=== PATIENT | male | born 1985 | race Caucasian/White ===

== ENCOUNTER 2020-05-01 11:32 | Outpatient (REF) | payer MEDICAID, SELFPAY | END 2020-05-01 11:33 | disposition home or self-care (01) | LOC: HO.LAB 11:32 | PROVIDERS: Visit Provider Internal Medicine | DX: Z20.822 Contact with and (suspected) exposure to COVID-19 (principal) | CPT/HCPCS: 36415; C9803; U0003 ==

== ENCOUNTER 2020-11-14 23:52 | Emergency (ER) | payer MEDICAID, SELFPAY ==
[2020-11-14 23:55] VITALS: BP 123/79; PULSE 87; RESP 16; TEMP 36.9; O2SAT 97; BMI 50.7
[2020-11-15] MEDS: predniSONE 20 MG TABLET 60 MG PO (00:38)
--- NOTE | 2020-11-15 00:43 | ED.GENADULT ---
HPI - General Adult General Chief complaint: Allergic Reaction Stated complaint: swollen hand Time Seen by Provider: 11/15/20 00:23 Source: patient Mode of arrival: ambulatory Limitations: no limitations History of Present Illness HPI narrative: 35-year-old male who presents emergency department for evaluation of right hand swelling. States this morning he developed swelling of his right hand. He states he has had similar swelling in other parts was body's the past secondary to allergic reactions. The hand was pruritic and he took some Benadryl. States that the swelling got worse this morning therefore came to emergency department for evaluation. Denies any pain or trauma to the hand. He denied fever, chills, chest pain, shortness of breath, dyspnea on exertion. Related Data Previous Rx's Medication Instructions Recorded prednisone 20 mg tablet 60 mg PO DAILY 5 Days #15 tab 11/15/20 Allergies Allergy/AdvReac Type Severity Reaction Status Date / Time No Known Allergies Allergy Unknown Unverified 01/03/20 16:42 Review of Systems Review of Systems: Yes all other systems are reviewed and are negative [facility] Past Medical History [facility] Narrative: Past medical history: Allergic reactions. Social history: The patient is a former smoker and he stopped smoking 2 years prior. He drinks 1 beer per day. He denies drug use. Social History Social History Advance Directives: No Advance Directives Information Provided: No Physical Exam Vital Signs: Vital Signs: Last Vital Signs Temp 98.5 F 11/14/20 23:55 Pulse 87 11/14/20 23:55 Resp 16 11/14/20 23:55 BP 123/79 11/14/20 23:55 Pulse Ox 97 11/14/20 23:55 Body Mass Index 50.7 Const: General: cooperative and healthy appearing Orientation/consciousness: oriented to person and oriented to place Limitations: no limitations HENMT: Head: Yes normal to inspection, Yes normocephalic and Yes atraumatic Ears: external ears normal General nose exam: Normal external nose present Face and sinus: Yes normal facial exam Mouth: Normal oral and palatal mucosa present Throat: Yes posterior oropharynx normal Eyes: Periorbital: periorbital findings normal Eyelids: Yes eyelids normal Conjunctivae: conjunctivae normal Sclerae: sclerae normal Corneas: corneas normal Pupils: Equal, round and reactive pupils present Direct Ophthalmoscopy: normal light reflex Neck: Neck: Yes full ROM, Yes no lymphadenopathy, Yes no meningeal signs, Yes trachea midline and Yes supple Chest: Chest palpation & inspection: normal inspection of the chest and normal palpation of entire chest wall Resp: Effort & Inspection: normal respiratory effort and able to speak in complete sentences Auscultation: clear to auscultation bilaterally Cardio: Rate: regular rate Rhythm: regular rhythm Heart sounds: S1 normal heart sound present, S2 normal heart sound present and no murmurs GI: Inspection: Yes normal to inspection Palpation (GI): Soft to palpation, nontender, no guarding, not rigid and No hepatosplenomegaly present : General: Yes no CVA tenderness Back/Spine/Pelvis: Back: no CVA tenderness Cervical Spine: normal cervical lordosis Thoracic/Lumbar Spine: thoracic and lumbar spine normal to inspection Skin: Lesions: no lesions Rashes: no rashes Wounds: no wounds Neuro: General: oriented to person, oriented to place and no meningeal signs Cranial nerves: Yes Equal, round and reactive pupils present Cognition (Neuro): normal cognition Motor exam (neuro): 5/5 motor strength present throughout Extrem: Other: The patient's right hand is swollen with no erythema or increased warmth, he has no tenderness with palpation over the joints. His full range of motion with no pain or limitations. Psych: Appearance: well kempt Mental Status: mental status grossly normal Speech and movement: Normal speech and movement present Affect: normal affect Attitude: cooperative Thought process: Normal thought process present Thought content: Normal thought content present Course Course Course Narrative: 35-year-old male who presents emergency department for evaluation of pruritus and swelling of his right hand. Patient does have swelling of his right hand with no erythema or increased warmth. At this time I do not think that he has an infectious process or any acute inflammatory arthritis. Patient has had some worse wall is the past secondary to allergic reactions and I believe that this may be allergic reaction at this time. Patient was given prednisone 60 mg orally. He is to take prednisone 60 mg once a day for 5 days. The patient was given verbal and printed instructions prior to discharge. The patient was advised to follow-up with their PCP in 2 days and to return to the emergency department if their symptoms get worse or if they develop any new symptoms that are concerning to them Discharge Plan Discharge Clinical Impression: Allergic reaction Qualifiers: Encounter type: initial encounter Qualified Code(s): T78.40XA - Allergy, unspecified, initial encounter Hand swelling Qualifiers: Laterality: right Qualified Code(s): M79.89 - Other specified soft tissue disorders Patient Disposition: Home, Self-Care Instructions: Allergies (ED) Additional Instructions: Take prednisone 20 mg pills, 3 pills once a day for 5 days. Take Benadryl 25 mg pills, 1 pill 4 times a day as needed for itchiness. Follow-up with your doctor in 2 days. Please return to the emergency department if your symptoms get worse or if you develop any symptoms that are concerning to you. Prescriptions: New prednisone 20 mg tablet 60 mg PO DAILY 5 Days Qty: 15 RF: 0
== END 2020-11-15 01:05 | disposition home or self-care (01) ==
PROVIDERS: Emergency Provider Emergency Medicine Emergency Medical Services
DX: T78.40XA Allergy, unspecified, initial encounter (principal); M79.89 Other specified soft tissue disorders; X58.XXXA Exposure to other specified factors, initial encounter
CPT/HCPCS: 99283

== ENCOUNTER 2020-12-14 01:12 | Emergency (ER) | payer MEDICAID, SELFPAY ==
--- NOTE | ~2020-12-14 | CT_ITS ---
EXAMINATION: CT ANGIOGRAM OF THE CHEST WITH AND WITHOUT CONTRAST (CT PULMONARY ANGIOGRAM FOR PE) CLINICAL INFORMATION: Reason for Exam chest pain, radiates into Rt side, elevated WBC COMPARISON: Chest x-ray from earlier today TECHNIQUE: Prior to contrast administration, noncontrast localization images were obtained. Subsequently, multidetector volumetric imaging was performed from the thoracic inlet to below the diaphragms following the administration of 65 mL Omnipaque 350 intravenous contrast. No contrast reaction reported Sagittal, coronal, and MIP oblique sagittal reformatted images were obtained on the CT workstation, uploaded to PACS, and reviewed. This CT examination was performed using dose optimization techniques as appropriate, variously including the following: *Automated exposure control *Adjustment of mA and/or kV according to patient size (this includes techniques or standardized protocols for targeted exams where dose is matched to indication/reason for exam; i.e. extremities or head) *Use of iterative reconstruction technique Total exam dose-length product 318 mGy-cm FINDINGS: QUALITY OF STUDY/CONTRAST BOLUS: Satisfactory. PULMONARY ARTERIES: No central or segmental pulmonary emboli. THORACIC AORTA: No aneurysm or dissection. LUNG: No focal consolidation, nodules or masses. PLEURA: No pleural effusion or pneumothorax. MEDIASTINUM: The visualized thyroid gland is unremarkable. There are subcentimeter mediastinal lymph nodes within the range of normal variation. Cardiac size is within normal limits; no pericardial effusion. No evidence of septal bowing or right heart strain. CHEST WALL/AXILLA: No axillary or internal mammary lymphadenopathy. Subcutaneous stranding is noted in the anterior to right lateral chest wall. OSSEOUS STRUCTURES: No acute or suspicious osseous abnormality. UPPER ABDOMEN: Unremarkable. No reflux of contrast into the hepatic veins to suggest elevated right heart pressures. CT/CT angio chest PE protocol IMPRESSION: 1. No pulmonary embolus identified. 2. Subcutaneous stranding in the anterior to right lateral chest wall, suggesting nonspecific inflammation. VTE: negative
--- NOTE | ~2020-12-14 | XR_ITS ---
EXAMINATION: XR CHEST CLINICAL INFORMATION: Chest pain COMPARISON: 08/22/2019 TECHNIQUE: Frontal view of the chest was obtained. FINDINGS: The lungs are clear with no focal consolidation. No evidence of pneumothorax, pulmonary edema, or pleural effusions. The cardiomediastinal silhouette is unremarkable. No acute osseous findings. XR/XR chest 1V IMPRESSION: No acute cardiopulmonary findings.
[2020-12-14 01:21] VITALS: BP 121/67; PULSE 64; RESP 20; TEMP 36.6; O2SAT 97; BMI 23.1
--- NOTE | 2020-12-14 01:27 | ECG_ITS ---
Test Reason : CHEST PAIN Blood Pressure : / mmHG Vent. Rate : 062 BPM Atrial Rate : 062 BPM P-R Int : 118 ms QRS Dur : 102 ms QT Int : 420 ms P-R-T Axes : 068 070 057 degrees QTc Int : 426 ms Normal sinus rhythm Incomplete right bundle branch block Borderline ECG When compared with ECG of 19-APR-2019 17:06, No significant change was found Referred By: Generic ED Physician Electronically Signed By:CARMINE BURT
[2020-12-14 01:53] VITALS: BP 113/72; PULSE 64; RESP 16; O2SAT 100
--- NOTE | 2020-12-14 02:02 | PC.NURSE ---
Pt became verbally agressive with this typewriter aligner when obtaining blood work. pt stated in spainish Fuck you, you fucking cunt, You're a fucking bitch. when asked to clarify pt stated I dont' want to talk to you. I am just saying words. Take this shit off of me. Pt then preceded to rip ekg leads off and bp. pt educated to risk of not being cardiac montiored and not having iv access. per patient fuck you Monitoring at this time.
[2020-12-14 02:10] LABS: Basophils Percent Auto 0.2 % (0-2); Eosinophils Absolute Auto 0.2 X10*3/uL (0.0-0.4); Eosinophils Percent Auto 1.1 % (0-4); Hematocrit 47.1 % (42-52); Hemoglobin 16.2 g/dl (14.0-18.0); Imm Gran Abs Auto 0.09 X10*3/uL (0.00-0.03); Imm Gran Pct Auto 0.6 % (0.0-0.4); Lymphocytes Absolute Auto 3.7 X10*3/uL (1.2-4.9); Lymphocytes Percent Auto 23.1 % (20-40); Mean Corpuscular HGB Conc 34.4 g/dl (31.0-36.0); Mean Corpuscular Hemoglobin 31.3 pg (27.0-33.0); Mean Corpuscular Volume 91.1 fL (80-98); Mean Platelet Volume 9.5 fL (9.4-12.4); Monocytes Absolute Auto 0.7 X10*3/uL (0.1-1.2); Monocytes Percent Auto 4.2 % (2-11); Neutrophils Absolute Auto 11.4 X10*3/uL (2.0-8.3); Neutrophils Percent Auto 70.8 % (45-73); PLT CLUMP 1; Red Blood Count 5.17 X10*6/uL (4.60-5.80); Red Cell Distribution Width 11.9 % (11.0-16.0); SCAN SMEAR FLAG 1
[2020-12-14 02:21] LABS: MANUAL DIFF FLAG NO; Platelet Count 197 X10*3/uL (160-400)
--- NOTE | 2020-12-14 02:23 | ED_ITS ---
HPI - Chest Pain General Chief Complaint: Chest Pain Stated Complaint: heartburn Time Seen by Provider: 12/14/20 02:08 Source: patient Mode of arrival: ambulatory History of Present Illness HPI narrative: 35-year-old male with history of acid reflux presents with burning, squeezing chest pain with radiation into the right side of the chest and improvement of this pain with deep inspiration but denies any change with position or arm movement and denies any recent sore throat, cough, fevers, chills, GI or symptoms. Patient states that he smokes marijuana and occasionally drinks alcohol the latter of which he lasted yesterday. Related Data Previous Rx's Medication Instructions Recorded prednisone 20 mg tablet 60 mg PO DAILY 5 Days #15 tab 11/15/20 sucralfate 100 mg/mL oral 10 ml PO BID #420 ml 12/14/20 suspension (Carafate) Allergies Allergy/AdvReac Type Severity Reaction Status Date / Time No Known Allergies Allergy Unknown Unverified 01/03/20 16:42 Review of Systems Review of Systems: Pertinent positives and negatives as stated in HPI 10 point review of systems is otherwise negative. PMFSH Past Medical History Source: nursing notes reviewed Medical History No known health problems Social History Social History Alcohol intake: current Alcohol intake frequency: 0-2 drinks per day Patient Tobacco Use Status: Current everyday Tobacco user Smoked in Last 30 Days: Yes Use of substances other than those prescribed or required for medical reasons: Yes Substance Use Type: Marijuana Substance Use Frequency: Chronic Longstanding Advance Directives: No Advance Directives Information Provided: Yes Physical Exam Vital Signs: Vital Signs: Last Vital Signs Temp 97.8 F 12/14/20 01:21 Pulse 73 12/14/20 06:55 Resp 16 12/14/20 06:55 BP 111/62 12/14/20 06:55 Pulse Ox 99 12/14/20 06:55 Body Mass Index 23.1 VITAL SIGNS: Reviewed. GENERAL: Patient smells strongly of marijuana, Well developed, well nourished, in no acute distress. HEAD: Normocephalic/atraumatic, EYES: PERRLA, EOMI EARS: Ext canals without abnormality, TMs non-bulging and non-erythematous NOSE: Nares patent bilateral OROPHARYNX: no oral lesions noted, posterior pharynx clear NECK: Supple, no adenopathy LUNGS: Normal breath sounds. No adventitious sounds or accessory muscle use. SpO2<100>, mild discomfort on palpation over lower portion of sternum CARDIOVASCULAR: Regular rate and rhythm without noted murmurs, no JVD or lower extremity edema. ABDOMEN: Soft, non-tender, non-distended with bowel sounds. SKIN: Inspection of the skin reveals no rashes NEUROLOGIC: Alert and oriented x 4. Strength and sensation to light touch were grossly intact x 4. Course Course Course Narrative: 35-year-old male with history and clinical presentation most suggestive of acid reflux and low clinical suspicion for a pericarditis or pulm onary etiology. Review of all investigations demonstrating an elevated white count which was present on previous visit is well and is not associated with elevated temperature or other constitutional symptoms. On re-evaluation patient reports improvement after the GI cocktail as well as the Carafate. D-dimer was noted to be elevated and a corresponding CT angio was negative for PE but demonstrated nonspecific stranding within the right anterior chest. All results and findings were discussed with the patient at bedside and he was encouraged to follow-up with his primary care provider for re-evaluation further outpatient management. MDM - Chest Pain Lab Data Result diagrams: 12/14/20 01:59 12/14/20 02:55 Labs: Lab Results 12/14/20 12/14/20 12/14/20 Range/Units 01:59 01:59 02:55 WBC 16.0 H (4.8-10.8) X10*3/uL RBC 5.17 (4.60-5.80) X10*6/uL Hgb 16.2 (14.0-18.0) g/dl Hct 47.1 (42-52) % MCV 91.1 (80-98) fL MCH 31.3 (27.0-33.0) pg MCHC 34.4 (31.0-36.0) g/dl RDW 11.9 (11.0-16.0) % Plt Count 197 (160-400) X10*3/uL MPV 9.5 (9.4-12.4) fL Immature Gran % (Auto) 0.6 H (0.0-0.4) % Neut % (Auto) 70.8 (45-73) % Lymph % (Auto) 23.1 (20-40) % Brooke % (Auto) 4.2 (2-11) % Eos % (Auto) 1.1 (0-4) % Baso % (Auto) 0.2 (0-2) % Lymph # (Auto) 3.7 (1.2-4.9) X10*3/uL Brooke # (Auto) 0.7 (0.1-1.2) X10*3/uL Eos # (Auto) 0.2 (0.0-0.4) X10*3/uL Baso # (Auto) 0.0 (0.0-0.2) X10*3/uL Abs Immat Gran (auto) 0.09 H (0.00-0.03) X10*3/uL Absolute Neuts (auto) 11.4 H (2.0-8.3) X10*3/uL Absolute Nucleated RBC 0.000 (0.0-0.012) X10*3/uL Nucleated RBC % (auto) 0.0 (0.0-0.2) /100WBC D-Dimer NG/ML Sodium 138 (135-145) mmol/L Potassium 4.0 (3.3-5.1) mmol/L Chloride 104 (96-108) mmol/L Carbon Dioxide 24 (22-29) mmol/L Anion Gap 14 (12-20) BUN 12 (9-16) mg/dL Creatinine 0.96 (0.5-1.4) mg/dL Estim Creat Clear Calc 128.4 Estimated GFR > 60 Random Glucose 95 (60-115) mg/dL Calcium 9.5 (8.4-10.2) mg/dL Troponin I High Sens < 3.5 (<3.5-35.0) ng/L COVID-19 ([facility]) (Negative) COVID-19 Clin Com 12/14/20 12/14/20 Range/Units 03:08 03:57 WBC (4.8-10.8) X10*3/uL RBC (4.60-5.80) X10*6/uL Hgb (14.0-18.0) g/dl Hct (42-52) % MCV (80-98) fL MCH (27.0-33.0) pg MCHC (31.0-36.0) g/dl RDW (11.0-16.0) % Plt Count (160-400) X10*3/uL MPV (9.4-12.4) fL Immature Gran % (Auto) (0.0-0.4) % Neut % (Auto) (45-73) % Lymph % (Auto) (20-40) % Brooke % (Auto) (2-11) % Eos % (Auto) (0-4) % Baso % (Auto) (0-2) % Lymph # (Auto) (1.2-4.9) X10*3/uL Brooke # (Auto) (0.1-1.2) X10*3/uL Eos # (Auto) (0.0-0.4) X10*3/uL Baso # (Auto) (0.0-0.2) X10*3/uL Abs Immat Gran (auto) (0.00-0.03) X10*3/uL Absolute Neuts (auto) (2.0-8.3) X10*3/uL Absolute Nucleated RBC (0.0-0.012) X10*3/uL Nucleated RBC % (auto) (0.0-0.2) /100WBC D-Dimer 985 NG/ML Sodium (135-145) mmol/L Potassium (3.3-5.1) mmol/L Chloride (96-108) mmol/L Carbon Dioxide (22-29) mmol/L Anion Gap (12-20) BUN (9-16) mg/dL Creatinine (0.5-1.4) mg/dL Estim Creat Clear Calc Estimated GFR Random Glucose (60-115) mg/dL Calcium (8.4-10.2) mg/dL Troponin I High Sens (<3.5-35.0) ng/L COVID-19 ([facility]) Negative (Negative) COVID-19 Clin Com See Note ECG Data ECG #1: Attestation: I personally reviewed and interpreted this ECG as follows: Prior ECG tracings: not available for review Interpretation: Normal sinus rhythm, HR -62, incomplete right bundle branch block, no STEMI, VT/QRS/QTC are within normal limits. Discharge Plan Discharge Clinical Impression: Atypical chest pain, Muscle strain of anterior chest wall, Gastroesophageal reflux disease Patient Disposition: Home, Self-Care Instructions: Muscle Strain (ED), Diet for Stomach Ulcers and Gastritis (ED), Gastroesophageal Reflux Disease (ED) Additional Instructions: 1. Recommend [id number] Tylenol/ibuprofen as needed for chest wall discomfort. 2. Follow-up with your primary care provider next 2-3 days for re-evaluation and further outpatient management. Return to the ER for acute worsening of symptoms. Prescriptions: New sucralfate [Carafate] 100 mg/mL suspension 10 ml PO BID Qty: 420 RF: 0 No Action prednisone 20 mg tablet 60 mg PO DAILY 5 Days Qty: 15 RF: 0 Referrals: [facility] [Primary Care Provider] - 2 days
[2020-12-14] MEDS: Lidocaine HCl Viscous 2 % 15 ML SOLUTION 10 ML MUCOUS MEM (02:36)
[2020-12-14] MEDS: Magnesium Hydrox/Alum Hydrox 30 ML ORAL.SUSP PO (02:36)
[2020-12-14 02:48] LABS: Troponin-I High Sensitivity < 3.5 ng/L (<3.5-35.0)
[2020-12-14 03:22] LABS: Anion Gap 14 (12-20); Blood Urea Nitrogen 12 mg/dL (9-16); Calcium 9.5 mg/dL (8.4-10.2); Carbon Dioxide 24 mmol/L (22-29); Chloride 104 mmol/L (96-108); Creatinine Clr Calc Pharmacy 128.4; Estimated Glomerular Filt Rate > 60; Glucose Random 95 mg/dL (60-115); Sodium 138 mmol/L (135-145)
[2020-12-14 03:30] LABS: COVID-19 Test Negative (Negative)
[2020-12-14 04:32] LABS: D Dimer 985 NG/ML
[2020-12-14] MEDS: Sucralfate Oral Suspension 1 GM/10 ML ORAL.SUSP PO (05:11)
[2020-12-14] MEDS: iohexoL 350 MG/ML 100 ML INFUS..BTL 65 ML IV (05:40)
[2020-12-14 06:55] VITALS: BP 111/62; PULSE 73; RESP 16; O2SAT 99
== END 2020-12-14 07:41 | disposition home or self-care (01) ==
PROVIDERS: Emergency Provider Student in an Organized Health Care Education/Training Program
DX: S29.011A Strain of muscle and tendon of front wall of thorax, initial encounter (principal); R07.9 Chest pain, unspecified; K21.9 Gastro-esophageal reflux disease without esophagitis; F17.200 Nicotine dependence, unspecified, uncomplicated; F12.90 Cannabis use, unspecified, uncomplicated; X58.XXXA Exposure to other specified factors, initial encounter; Y93.9 Activity, unspecified; Y92.9 Unspecified place or not applicable; Y99.9 Unspecified external cause status; Z20.822 Contact with and (suspected) exposure to COVID-19; Z71.6 Tobacco abuse counseling
CPT/HCPCS: 36415; 71045; 71275; 80048; 84484; 85025; 85379; 87635; 93005; 99285; Q9967

== ENCOUNTER 2020-12-18 14:24 | Outpatient (REF) | payer MEDICAID, SELFPAY | END 2020-12-18 14:25 | disposition home or self-care (01) | LOC: HO.LAB 14:24 | PROVIDERS: Visit Provider Internal Medicine | DX: Z20.822 Contact with and (suspected) exposure to COVID-19 (principal) | CPT/HCPCS: C9803; U0003; U0005 ==

== ENCOUNTER 2020-12-23 10:04 | Outpatient (REF) | payer MEDICAID, SELFPAY | END 2020-12-23 10:05 | disposition home or self-care (01) | LOC: HO.LAB 10:04 | PROVIDERS: Visit Provider Internal Medicine | DX: Z20.822 Contact with and (suspected) exposure to COVID-19 (principal) | CPT/HCPCS: C9803; U0003; U0005 ==

== ENCOUNTER 2021-04-19 12:26 | Emergency (ER) | payer MEDICAID, SELFPAY | END 2021-04-19 17:36 | disposition left against medical advice (07) | PROVIDERS: Emergency Provider Emergency Medicine | DX: M79.89 Other specified soft tissue disorders (principal) ==

== ENCOUNTER 2021-04-24 11:08 | Emergency (ER) | payer MEDICAID, SELFPAY ==
[2021-04-24 11:52] VITALS: BP 120/63; PULSE 87; RESP 18; TEMP 36.8; O2SAT 99; BMI 24.4
[2021-04-24 12:15] LABS: COVID-19 Test Positive (Negative)
--- NOTE | 2021-04-24 14:56 | ED.URI ---
HPI - URI/Sore Throat General Chief Complaint: Upper Respiratory Symptoms Stated Complaint: covid symptoms/exposed Time Seen by Provider: 04/24/21 14:12 Source: patient Mode of arrival: ambulatory Limitations: no limitations History of Present Illness MD elicited complaint: cough, sore throat, rhinorrhea and other (body aches) Pertinent past history: other (unvaccinated) Onset (ago): day(s) (3) Consistency: constant Severity: mild Description of mucous: clear Able to tolerate fluids by mouth: Yes Exacerbating factors: nothing Relieving factors: nothing Associated symptoms: chills, myalgias, sore throat and cough Treatments prior to arrival: none Related Data Previous Rx's Medication Instructions Recorded prednisone 20 mg tablet 60 mg PO DAILY 5 Days #15 tab 11/15/20 sucralfate 100 mg/mL oral 10 ml PO BID #420 ml 12/14/20 suspension (Carafate) Allergies Allergy/AdvReac Type Severity Reaction Status Date / Time No Known Allergies Allergy Unknown Verified 04/24/21 11:52 Review of Systems Review of Systems: Constitutional : no Fever, positive Chills, positive fatigue, positive Malaise ENT/Mouth : positive sore throat, positive runny nose Eyes: No Discharge Cardiovascular : No Chest Pain, No SOB Respiratory : No Cough, No Sputum Gastrointestinal : No Nausea, No Vomiting, No Diarrhea Genitourinary : No Dysuria, No Urinary Frequency Musculoskeletal : positive Myalgia, pos low back pain Skin : No rash Neuro : No Headache PMFSH Past Medical History Attestation statement: The following information was validated with the patient. Medical History No known health problems Social History Social History Alcohol intake: current Alcohol intake frequency: 0-2 drinks per day Patient Tobacco Use Status: Current everyday Tobacco user Substance Use Type: Marijuana Physical Exam Vital Signs: Vital Signs: Last Vital Signs Temp 98.3 F 04/24/21 11:52 Pulse 87 04/24/21 11:52 Resp 18 04/24/21 11:52 BP 120/63 04/24/21 11:52 Pulse Ox 99 04/24/21 11:52 BMI result Body Mass Index 24.4 Appearance: Alert. Oriented X3. No acute distress. Eyes: Pupils equal, round and reactive to light. ENT: Pharynx normal. Neck: Normal inspection. Neck supple. CVS: Normal heart rate and rhythm. Pulses normal. Respiratory: No respiratory distress. Breath sounds normal. Abdomen: Soft and non-tender. Skin: Skin warm and dry. Normal skin color. Normal skin turgor. Extremities: No lower extremity edema. Neuro: Oriented X 3. No motor deficit. No sensory deficit. MDM - URI/Sore Throat MDM Narrative Medical decision making narrative: 35 yo male no PMH here with c/o body aches and cough for 3 days he is unvaccinated denies any CP/SOB here because he was due to fly Tuesday and needs a letter - at this time clear lungs and 99% on RA given precautions to return. Not a candidate for Mab given limited supplies and no PMH. Lab Data Labs: Lab Results 04/24/21 Range/Units 11:56 COVID-19 ([facility]) Positive A (Negative) COVID-19 Clin Com See Note Discharge Plan Discharge Clinical Impression: COVID-19 Patient Disposition: Home, Self-Care Instructions: COVID-19 (Coronavirus Disease 2019) (ED) Additional Instructions: return to ED for any worsening symptoms or concerns COVID POSITIVE ON 04/24/21 SYMPTOMS STARTED ON 04/21/21 MONITOR YOUR BREATHING IF YOU BECOME SO SHORT OF BREATH YOU CANNOT WALK TO YOUR BATHROOM SEEK IMMEDIATE HELP Prescriptions: No Action prednisone 20 mg tablet 60 mg PO DAILY 5 Days Qty: 15 RF: 0 sucralfate [Carafate] 100 mg/mL suspension 10 ml PO BID Qty: 420 RF: 0
--- NOTE | 2021-04-24 15:04 | PC.NURSE ---
pt evaluated by md garcia.
== END 2021-04-24 15:22 | disposition home or self-care (01) ==
LOC: HO.ED 15:18
PROVIDERS: Emergency Provider Emergency Medicine
DX: U07.1 COVID-19 (principal); M79.10 Myalgia, unspecified site; R05.9 Cough, unspecified; F12.90 Cannabis use, unspecified, uncomplicated; F17.200 Nicotine dependence, unspecified, uncomplicated; Z79.899 Other long term (current) drug therapy; Z71.6 Tobacco abuse counseling
CPT/HCPCS: 87635; 99283

== ENCOUNTER 2021-07-16 03:52 | Emergency (ER) | payer MEDICAID, SELFPAY ==
[2021-07-16 03:55] VITALS: BP 130/72; PULSE 71; O2SAT 100
[2021-07-16 04:01] VITALS: BP 127/48; PULSE 67; RESP 14; TEMP 36.8; O2SAT 98; BMI 21.1
--- NOTE | 2021-07-16 04:05 | ED_ITS ---
HPI - Abdominal Pain General Chief Complaint: Abdominal Pain Stated Complaint: abd. pain,nausea and vomiting Time Seen by Provider: 07/16/21 04:05 Source: patient Mode of arrival: EMS History of Present Illness HPI narrative: 35-year-old male who reports of 3 days ago he was drinking and smoking and then for the past 2 days has had a few episodes of bright red blood when vomiting and has complaints of burning epigastric pain that extends into his esophagus and he states significant pain when lying flat. Patient also states that the pain radiates into his back and that he is constipated although he reports melena when he has had stool. Related Data Previous Rx's Medication Instructions Recorded omeprazole 20 mg capsule,delayed 20 mg PO DAILY 30 Days #30 cap 07/16/21 release sucralfate 100 mg/mL oral 10 ml PO BID #420 ml 07/16/21 suspension (Carafate) Allergies Allergy/AdvReac Type Severity Reaction Status Date / Time No Known Allergies Allergy Unknown Verified 04/24/21 11:52 Review of Systems Review of Systems Pertinent positives and negatives as stated in HPI 10 point review of systems is otherwise negative. PMFSH Past Medical History Source: nursing notes reviewed Medical History No known health problems Social History Social History Alcohol intake: current Alcohol intake frequency: a few times a week Alcohol ty pe: beer Patient Tobacco Use Status: Current everyday Tobacco user Smoked in Last 30 Days: Yes Use of substances other than those prescribed or required for medical reasons: Yes Substance Use Type: Marijuana Substance Use Frequency: Daily Advance Directives: No Physical Exam ED Vital Signs: Vital Signs - 24 hr 07/16/21 04:01 07/16/21 04:12 07/16/21 06:00 Temperature 98.2 F Pulse Rate 67 71 80 Respiratory Rate 14 16 16 Blood Pressure 127/48 L 124/76 110/65 Pulse Oximetry 98 100 98 BMI result Body Mass Index 21.1 VITAL SIGNS: Reviewed. GENERAL: Well developed, well nourished, in no acute distress. HEAD: Normocephalic/atraumatic EYES: PERRLA, EOMI EARS: Ext canals without abnormality OROPHARYNX: no oral lesions noted, posterior pharynx clear LUNGS: Normal breath sounds. No adventitious sounds or accessory muscle use. SpO 2<98> CARDIOVASCULAR: Regular rate and rhythm without noted murmurs ABDOMEN: Soft, non-tender, non-distended with bowel sounds. BERNADETTE: Patient deferred, but there was small amount of stool on finger that was sent to lab for evaluation. MUSCULOSKELETAL: No tenderness, deformities, or effusions noted on gross inspection. EXTREMITIES: No cyanosis, clubbing or edema. SKIN: Inspection of the skin reveals no rashes NEUROLOGIC: Alert and oriented x 4. Strength and sensation to light touch were grossly intact x 4. Course Course Course Narrative: 35-year-old male with history and clinical presentation consistent with alcohol gastritis with likely upper GI bleed. Patient given a L fluids, Protonix, and as he got relief from milk would proceed with a GI cocktail after workup is complete. On re-evaluation patient is feeling much better after the GI cocktail as well as the dose of Carafate and on review of all investigations although patient's stool is guaiac positive, he is not tachycardic nor is he hypotensive and has had no further hematemesis episodes and is otherwise hemodynamically stable. All results discussed with the patient at bedside and he understands he will placed on a course of Carafate and provided a GI referral. MDM - Abdominal Pain Lab Data Result diagrams: 07/16/21 04:15 07/16/21 04:15 Labs: Lab Results 07/16/21 07/16/21 07/16/21 Range/Units 04:15 04:15 04:29 WBC 9.7 (4.8-10.8) X10*3/uL RBC 4.70 (4.60-5.80) X10*6/uL Hgb 14.9 (14.0-18.0) g/dl Hct 43.2 (42.0-52.0) % MCV 91.9 (80.0-98.0) fL MCH 31.7 (27.0-33.0) pg MCHC 34.5 (31.0-36.0) g/dl RDW 12.3 (11.0-16.0) % Plt Count 231 (160-400) X10*3/uL MPV 8.3 L (9.4-12.4) fL Immature Gran % (Auto) 0.4 (0.0-0.4) % Neut % (Auto) 60.7 (45-73) % Lymph % (Auto) 28.5 (20-40) % [place] % (Auto) 7.1 (2-11) % Eos % (Auto) 3.1 (0-4) % Baso % (Auto) 0.2 (0-2) % Lymph # (Auto) 2.8 (1.2-4.9) X10*3/uL [place] # (Auto) 0.7 (0.1-1.2) X10*3/uL Eos # (Auto) 0.3 (0.0-0.4) X10*3/uL Baso # (Auto) 0.0 (0.0-0.2) X10*3/uL Abs Immat Gran (auto) 0.04 H (0.00-0.03) X10*3/uL Absolute Neuts (auto) 5.9 (2.0-8.3) x10*3/uL Absolute Nucleated RBC 0.000 (0.0-0.012) X10*3/uL Nucleated RBC % (auto) 0.0 (0.0-0.2) /100WBC Sodium 142 (135-145) mmol/L Potassium 3.9 (3.3-5.1) mmol/L Chloride 102 (96-108) mmol/L Carbon Dioxide 30 H (22-29) mmol/L Anion Gap 14 (12-20) BUN 9 (9-16) mg/dL Creatinine 0.93 (0.5-1.4) mg/dL Estim Creat Clear Calc 124.1 Estimated GFR > 60 Random Glucose 96 (60-115) mg/dL Calcium 9.5 (8.4-10.2) mg/dL Total Bilirubin 0.5 (0.0-1.0) mg/dL AST 18 (5-37) U/L ALT 30 (0-40) U/L Alkaline Phosphatase 106 (39-117) U/L Total Protein 6.9 (6.5-8.0) g/dL Albumin 4.4 (3.5-5.0) g/dL Lipase 40 (8-78) U/L Stool Occult Blood POSITIVE (NEGATIVE) Discharge Plan Discharge Clinical Impression: Alcoholic gastritis, GI bleed Patient Disposition: Home, Self-Care Instructions: Gastritis (ED), Diet for Stomach Ulcers and Gastritis (ED) Additional Instructions: 1. Increase fluid hydration, especially with water as 1 of the prescribed medi cations can lead to constipation. 2. You have been provided with a referral to see gastroenterology as should call the office this morning to set up an appointment. 3. Stop drinking alcohol and follow the guidelines that you have been provided with this discharge paperwork and avoid all carbonated, spicy, citrus, caffeine to allow your stomach time to recover. Return to the ER for worsening symptoms, specifically if you experience any further vomiting of blood. Prescriptions: New sucralfate [Carafate] 100 mg/mL suspension 10 ml PO BID Qty: 420 0RF omeprazole 20 mg capsule,delayed release(DR/EC) 20 mg PO DAILY 30 Days Qty: 30 0RF Referrals: [facility] [Primary Care Provider] - 2 days Channing Sinha [Physician] - 2 days (35-year-old male, developed 2-3 episodes of hematemesis after drinking alcohol, resolved, hemodynamically stable, H&H stable. Discharged with Carafate and omeprazole.)
[2021-07-16 04:12] VITALS: BP 124/76; PULSE 71; RESP 16; O2SAT 100
[2021-07-16 04:19] LABS: MANUAL DIFF FLAG NO
[2021-07-16 04:20] LABS: Basophils Percent Auto 0.2 % (0-2); Eosinophils Absolute Auto 0.3 X10*3/uL (0.0-0.4); Eosinophils Percent Auto 3.1 % (0-4); Hematocrit 43.2 % (42.0-52.0); Hemoglobin 14.9 g/dl (14.0-18.0); Imm Gran Abs Auto 0.04 X10*3/uL (0.00-0.03); Imm Gran Pct Auto 0.4 % (0.0-0.4); Lymphocytes Absolute Auto 2.8 X10*3/uL (1.2-4.9); Lymphocytes Percent Auto 28.5 % (20-40); Mean Corpuscular HGB Conc 34.5 g/dl (31.0-36.0); Mean Corpuscular Hemoglobin 31.7 pg (27.0-33.0); Mean Corpuscular Volume 91.9 fL (80.0-98.0); Mean Platelet Volume 8.3 fL (9.4-12.4); Monocytes Absolute Auto 0.7 X10*3/uL (0.1-1.2); Monocytes Percent Auto 7.1 % (2-11); Neutrophils Absolute Auto 5.9 x10*3/uL (2.0-8.3); Neutrophils Percent Auto 60.7 % (45-73); Platelet Count 231 X10*3/uL (160-400); Red Cell Distribution Width 12.3 % (11.0-16.0); White Blood Count 9.7 X10*3/uL (4.8-10.8)
--- NOTE | 2021-07-16 04:20 | PC.NURSE ---
pt reports 3 days of N/V, 3 episodes of bright red blood. c/o upper abd pain described as 10/10 burning. zantac with no relief. pt reports having 2 beers daily, but hasnt had any alcohol in 3 days due to symptoms. Food reportedly makes the pain worse.
[2021-07-16 04:33] LABS: OBS1 POSITIVE (NEGATIVE)
[2021-07-16 04:34] LABS: OBS Int Ctl Valid YES
[2021-07-16 04:36] LABS: Alanine Aminotransferase 30 U/L (0-40); Albumin Level 4.4 g/dL (3.5-5.0); Alkaline Phosphatase 106 U/L (39-117); Anion Gap 14 (12-20); Aspartate Amino Transferase 18 U/L (5-37); Bilirubin Total 0.5 mg/dL (0.0-1.0); Blood Urea Nitrogen 9 mg/dL (9-16); Calcium 9.5 mg/dL (8.4-10.2); Carbon Dioxide 30 mmol/L (22-29); Chloride 102 mmol/L (96-108); Creatinine Clr Calc Pharmacy 124.1; Estimated Glomerular Filt Rate > 60; Glucose Random 96 mg/dL (60-115); Lipase 40 U/L (8-78); Potassium 3.9 mmol/L (3.3-5.1); Sodium 142 mmol/L (135-145); Total Protein 6.9 g/dL (6.5-8.0)
[2021-07-16] MEDS: 0.9 % Sodium Chloride 1,000 ML 999 ML IV (04:36)
[2021-07-16] MEDS: Pantoprazole Sodium 40 MG/10 ML VIAL 80 MG IVPUSH (04:36)
[2021-07-16] MEDS: Magnesium Hydrox/Alum Hydrox 30 ML ORAL.SUSP PO (05:23)
[2021-07-16] MEDS: Lidocaine HCl Viscous 2 % 15 ML SOLUTION 10 ML MUCOUS MEM (05:24)
[2021-07-16] MEDS: Sucralfate Oral Suspension 1 GM/10 ML ORAL.SUSP PO (05:58)
[2021-07-16 06:00] VITALS: BP 110/65; PULSE 80; RESP 16; O2SAT 98
== END 2021-07-16 06:47 | disposition home or self-care (01) ==
PROVIDERS: Emergency Provider Student in an Organized Health Care Education/Training Program
DX: K29.21 Alcoholic gastritis with bleeding (principal); R11.2 Nausea with vomiting, unspecified; F17.200 Nicotine dependence, unspecified, uncomplicated; F12.90 Cannabis use, unspecified, uncomplicated
CPT/HCPCS: 36415; 80053; 82272; 83690; 85025; 96361; 96374; 99284; 99285

== ENCOUNTER 2021-11-10 05:37 | Emergency (ER) | payer MEDICAID, SELFPAY ==
[2021-11-10 06:17] VITALS: BP 133/78; PULSE 70; RESP 16; TEMP 35.5; O2SAT 97; BMI 22.4
[2021-11-10 06:23] LABS: COVID-19 Test Negative (Negative); IDNOW Serial# 16C4AD1C; Influenza A Negative (Negative); Influenza B2 Negative (Negative)
--- NOTE | 2021-11-10 08:57 | ED.URI ---
HPI - URI/Sore Throat General Chief Complaint: Upper Respiratory Symptoms Stated Complaint: discoloration in throat and tongue Time Seen by Provider: 11/10/21 08:12 Source: patient Mode of arrival: ambulatory Limitations: no limitations History of Present Illness HPI Narrative: 36-year-old male heavy smoker presents to ED for painful tongue and pain in throat with whitish rash. Patient states this has been going on for the past 4 days. Patient denies any history of HIV, or any immunocompromised diseases. Patient denies any history of diabetes. Patient denies any recent or sexual activity. Patient denies any history of diabetes Related Data Previous Rx's Medication Instructions Recorded omeprazole 20 mg capsule,delayed 20 mg PO DAILY 30 days #30 caps 07/16/21 release sucralfate 100 mg/mL oral 10 ml PO BID #420 mL 07/16/21 suspension (Carafate) lidocaine HCl 2 % mucosal solution 15 ml mucous membrane Q3-4H PRN 11/10/21 (Lidocaine Viscous) pain 5 days #100 mL nystatin 100,000 unit/mL oral 1 ml PO QID 7 days #60 mL 11/10/21 suspension Allergies Allergy/AdvReac Type Severity Reaction Status Date / Time No Known Allergies Allergy Unknown Verified 11/10/21 06:18 Review of Systems Review of Systems: painful tongue and sore throat. White patchy rash. PMFSH Past Medical History Medical History No known health problems Social History Social History Alcohol intake: current Alcohol intake frequency: a few times a week Alcohol type: beer Patient Tobacco Use Status: Current everyday Tobacco user Substance Use Type: Marijuana Advance Directives: No Advance Directives Information Provided: No Physical Exam Vital Signs: Vital Signs: Last Vital Signs Temp 96 F L 11/10/21 06:17 Pulse 70 11/10/21 06:17 Resp 16 11/10/21 06:17 BP 133/78 11/10/21 06:17 Pulse Ox 97 11/10/21 06:17 O2 Del Method 11/10/21 06:17 BMI result Body Mass Index 22.4 Const: General: cooperative, healthy appearing, comfortable, no acute distress, well developed, alert, awake and Physically active Orientation/consciousness: patient oriented x3 HEENT: Other: Tongue has white rash that does not come off. tonsils and pharynx negative for any exudates, or redness. Eyes: General: appearance normal, both eyes and all related structures Neck: Neck: Yes normal visual inspection, Yes full ROM, Yes no lymphadenopathy, Yes no meningeal signs, Yes trachea midline, Yes supple, No anterior neck swelling and No tender Chest: Chest palpation & inspection: normal inspection of the chest and normal palpation of entire chest wall Resp: Effort & Inspection: normal respiratory effort and able to speak in complete sentences Auscultation: clear to auscultation bilaterally Cardio: Jugular venous distension: no JVD Heart sounds: S1 normal heart sound present and S2 normal heart sound present GI: Inspection: Yes normal to inspection and No abdominal wall ecchymosis Palpation (GI): Soft to palpation, not firm, nontender, no guarding and not rigid : General: No CVA tenderness and Yes no CVA tenderness Back/Spine/Pelvis: Back: no CVA tenderness, No CVA tenderness and No back tenderness Skin: General skin exam: no rashes or lesions noted and elasticity normal Neuro: General: patient oriented x3, gait normal, no meningeal signs and CN's II-XI intact bilaterally Cranial nerves: Yes CN's II-XII intact bilaterally Extrem: General: Yes normal to inspection and Yes full ROM Psych: Appearance: grossly normal, well kempt and not disheveled Course Course Course Narrative: COVID influenza swab ordered and were negative. Strep sent. Viscous lidocaine oral ordered. Reevaluation(s) Reevaluation #1: History and physical exam indicates thrush versus leukoplakia. patient's history of heavy smoker informed to follow-up with primary care provider make sure not cancerous. Strep test pending. patient does not want wait for strep result. Patient would like to be called with results strep. Time: 21:08 Reevaluation #2: patient's cell phone number was called and not able to leave voicemail. 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 MDM - URI/Sore Throat MDM Narrative Medical decision making narrative: Leukoplakia vs oral thrush Lab Data Labs: Lab Results 11/10/21 11/10/21 11/10/21 Range/Units 06:03 06:03 09:14 COVID-19 ([facility]) Negative (Negative) COVID-19 Clin Com See Note Influenza Type A ([facility]) Negative (Negative) Influenza Type B ([facility]) Negative (Negative) Influenza A & B Note See Note S. pyogenes GrpA [facility] Negative (Negative) Discharge Plan Discharge Clinical Impression: Oral thrush, Leukoplakia of oral cavity Patient Disposition: Home, Self-Care Instructions: Oral Candidiasis (ED) Additional Instructions: History and physical exam indicate oral thrush versus leukoplakia. Due to history of smoking recommend follow-up primary care provider and make sure no oral cancer developing Or inflammatory /immunocompromised disease development. Return to the ED immediately for drooling, change in voice, worsening pain, worsening rash, chest pain, shortness of breath, inability to tolerate solid food/ liquid, or any other concerning symptoms. Prescriptions: New nystatin 100,000 unit/mL suspension 1 ml PO QID 7 Days Qty: 60 0RF Rx Instructions: swish and swallow lidocaine HCl [Lidocaine Viscous] 2 % solution 15 ml mucous membrane Q3-4H PRN (Reason: pain) 5 Days Qty: 100 0RF Rx Instructions: swish and spit. no more than 8 doses in 24 hours. No Action sucralfate [Carafate] 100 mg/mL suspension 10 ml PO BID Qty: 420 0RF omeprazole 20 mg capsule,delayed release(DR/EC) 20 mg PO DAILY 30 Days Qty: 30 0RF Interventions: ED Discharge Assessment Last Done: 11/10/21 09:27 Discharge Date/Time: 11/10/21 09:28 Print Language: Vincentian
[2021-11-10] MEDS: Lidocaine HCl Viscous 2 % 15 ML SOLUTION MUCOUS MEM (09:13)
[2021-11-10 09:38] LABS: Strep A Nucleic Acid Negative (Negative)
== END 2021-11-10 09:28 | disposition home or self-care (01) ==
PROVIDERS: Physician Assistant; Emergency Provider Emergency Medicine
DX: B37.0 Candidal stomatitis (principal); K13.21 Leukoplakia of oral mucosa, including tongue; Z20.822 Contact with and (suspected) exposure to COVID-19; F17.200 Nicotine dependence, unspecified, uncomplicated; F12.90 Cannabis use, unspecified, uncomplicated
CPT/HCPCS: 36415; 87502; 87635; 87651; 99282; 99283

== ENCOUNTER 2023-03-19 05:17 | Emergency (ER) | payer SELFPAY ==
--- NOTE | ~2023-03-19 | CT_ITS ---
EXAMINATION: CT head/brain wo IV con CLINICAL INFORMATION: Reason for Exam reporting bilateral hearing loss, found unresponsive COMPARISON: None. TECHNIQUE: Contiguous axial imaging was performed from the skull base to vertex without intravenous contrast. Sagittal and coronal reformatted images were obtained. This CT examination was performed using dose optimization techniques as appropriate, variously including the following: * Automated exposure control * Adjustment of mA and/or kV according to patient size (this includes techniques or standardized protocols for targeted exams where dose is matched to indication/reason for exam; i.e. extremities or head) Use of iterative reconstruction technique DLP: 675 mGy-cm FINDINGS: No acute osseous or soft tissue abnormality. Left occipital scalp 4 cm subcutaneous lipoma. The mastoid air cells and visualized portions of the paranasal sinuses are well aerated. There is no evidence of acute intracranial hemorrhage or territorial infarction. No abnormal mass effect or midline shift is seen. Becker to white matter differentiation is well preserved. No extra-axial fluid collections are identified. No hydrocephalus. No significant volume loss. There is no abnormal attenuation within the brain parenchyma. CT/CT head/brain wo IV con IMPRESSION: No acute intracranial hemorrhage, mass effect, hydrocephalus, or acute territorial edematous infarction.
[2023-03-19 05:27] VITALS: PULSE 116; O2SAT 96
[2023-03-19 05:33] VITALS: BMI 25.3
--- NOTE | 2023-03-19 05:58 | MHC.EDTECH ---
At this time, This tech tried to get his EKG, patient shook head, and covered his face with blankets. This Tech will try again.
[2023-03-19 06:11] VITALS: BP 96/55; PULSE 90; RESP 14; O2SAT 100
--- NOTE | 2023-03-19 06:28 | ED.OVERDOSE ---
HPI - Overdose General Chief Complaint: Overdose Stated Complaint: OD Time Seen by Provider: 03/19/23 06:22 Source: patient, family, EMS and RN notes reviewed Mode of arrival: EMS Limitations: physical limitation History of Present Illness HPI Narrative: Patient is a 37-year-old male with no reported history, does admit to occasional alcohol and marijuana use presenting to the emergency department after found unresponsive by family. Patient and sister deny other drug use. Patient's sister reports that she went in to his room to get a cigarette and found him unresponsive, face was blue. She states that he was in bed and she moved him onto the floor and called 911. Narcan 8 mg was administered by police, patient found to have a pulse and shallow respirations by EMS, an additional 4 mg of Narcan administered by EMS. Sister denies performing any CPR. Patient now reporting bilateral hearing loss. Denies chest pain, palpitations, shortness of breath. Denies headache, vision changes. Timing confirmed by: family member How Overdose Was Discovered: family/friend present at time Context: Accidental Overdose: uncertain what happened Associated symptoms: other (hearing loss) Treatments Prior to Arrival: oxygen and narcan Related Data Previous Rx's Medication Instructions Recorded omeprazole 20 mg capsule,delayed 20 mg PO DAILY 30 days #30 caps 07/16/21 release sucralfate 100 mg/mL oral 10 ml PO BID #420 mL 07/16/21 suspension (Carafate) lidocaine HCl 2 % mucosal solution 15 ml mucous membrane Q3-4H PRN 11/10/21 (Lidocaine Viscous) pain 5 days #100 mL nystatin 100,000 unit/mL oral 1 ml PO QID 7 days #60 mL 11/10/21 suspension Allergies Allergy/AdvReac Type Severity Reaction Status Date / Time No Known Allergies Allergy Unknown Verified 03/19/23 05:39 Review of Systems Review of Systems: As per HPI. Yes all other systems are reviewed and are negative Constitutional: Constitutional: Reports as per HPI [facility] Past Medical History Medical History No known health problems Social History Social History Unable to assess alcohol history related to: Unable to respond Alcohol intake: current Alcohol intake frequency: a few times a week Alcohol type: beer Patient Tobacco Use Status: Current everyday Tobacco user Substance Use Type: Opiates Physical Exam Vital Signs: Vital Signs: Last Vital Signs Pulse 90 03/19/23 06:11 Resp 14 03/19/23 06:11 BP 96/55 L 03/19/23 06:11 Pulse Ox 100 03/19/23 06:11 O2 Del Method Room Air 03/19/23 06:11 BMI result Body Mass Index 25.3 Vital signs have been reviewed and appear to be correct. Blood pressure normal. Heart rate normal. Respiratory rate normal. Oxygen saturation normal. Const: General: healthy appearing and no acute distress Orientation/consciousness: oriented to person, oriented to place, oriented to time and patient oriented x3 HEENT: Other: Patient reporting bilateral hearing loss, however turns head and makes eye contact when spoken to Head: Yes normocephalic and Yes atraumatic Ears: external ears normal, TM's normal bilaterally, EAC's normal and other General nose exam: Normal external nose present, Normal nasal mucous membranes and turbinates present and Normal septum present Face and sinus: Yes face symmetric Mouth: oropharynx normal and moist mucous membranes Throat: Yes uvula midline Eyes: Pupils: Equal, round and reactive pupils present Neck: Neck: Yes normal visual inspection and Yes supple Resp: Effort & Inspection: normal respiratory effort and able to speak in complete sentences Auscultation: clear to auscultation bilaterally Cardio: Rate: regular rate Rhythm: regular rhythm Heart sounds: S1 normal heart sound present and S2 normal heart sound present GI: Palpation (GI): Soft to palpation and nontender Auscultation: normoactive bowel sounds : General: Yes no CVA tenderness Back/Spine/Pelvis: Back: no CVA tenderness Skin: General skin exam: elasticity normal and turgor normal Neuro: General: oriented to person, oriented to place, oriented to time, patient oriented x3, moves all extremities, no focal motor deficits and CN's II-XI intact bilaterally Cranial nerves: Yes Equal, round and reactive pupils present Cognition (Neuro): normal cognition Extrem: General: Yes full ROM, Yes no pedal edema and Yes no calf tenderness Psych: Mental Status: mental status grossly normal Medical Decision Making Medical Decision Making MDM Narrative: Patient is a 37-year-old male with no reported history, does admit to occasional alcohol and marijuana use presenting to the emergency department after found unresponsive by family. On exam patient is awake, A+Ox3, VS WNL, physical exam findings as above. Given reported symptoms and physical exam findings, initial differential includes overdose, opioid induced hearing loss, ICH. Patient repeatedly requesting water. Discussed with patient that given his report of hearing loss, will defer PO fluids until CT head resulted. Patient refusing EKG or labs until he is provided with water. CT notable for no acute intracranial abnormalities. My interpretation is in agreement with the radiologist's interpretation. Patient updated on CT results and provided with water. Patient's sister no longer at bedside and patient now admitting to opiate use, states he does not want his family to know about his drug use. Patient tolerated water PO and reports his hearing has now returned to normal bilaterally. Feel patient is stable for discharge home, will discharge with Narcan. Patient declining help with detox. Return precautions discussed. Patient verbalized understanding of and agreement with plan. Differential Diagnosis Differential Diagnoses: The differential diagnosis associated with the presentation includes As per MDM. Admission/Observation Consideration of admission/observation: Escalation of care including admission/observation considered Independent Interpretation I performed an independent interpretation of an: CT Scan Interpretation: No acute intracranial abnormalities Radiology Impression Discussion of test interpretation with radiology: I have reviewed the radiologist's reading. Radiologist Impression: CT/CT head/brain wo IV con IMPRESSION: No acute intracranial hemorrhage, mass effect, hydrocephalus, or acute territorial edematous infarction. Independent Historian Clinical information obtained from an independent historian. History obtained from or confirmed by: Other (sister) External Record Review External record reviewed: Inpatient record, Office record and Outpatient record Prescription Management I considered prescription management with: Other (naloxone) Chronic Conditions Patient?s care impacted by: Other (substance use) Discharge Plan Discharge Clinical Impression: Drug overdose Patient Disposition: Home, Self-Care Instructions: Adult Overdose (ED) Additional Instructions: DO NOT USE DRUGS, THEY CAN KILL YOU. You are being provided with with take home naloxone (NARCAN), you should keep this on you at all times. Prescriptions: No Action sucralfate [Carafate] 100 mg/mL suspension 10 ml PO BID Qty: 420 0RF omeprazole 20 mg capsule,delayed release(DR/EC) 20 mg PO DAILY 30 Days Qty: 30 0RF nystatin 100,000 unit/mL suspension 1 ml PO QID 7 Days Qty: 60 0RF Rx Instructions: swish and swallow lidocaine HCl [Lidocaine Viscous] 2 % solution 15 ml mucous membrane Q3-4H PRN (Reason: pain) 5 Days Qty: 100 0RF Rx Instructions: swish and spit. no more than 8 doses in 24 hours.
--- NOTE | 2023-03-19 07:12 | MHC.EDTECH ---
patient refused EKG and lab work. this tech attempted to explain the reason why the patient could not have water and the patient and visitor started getting angry and arguing about it. unable to obtain labs and EKG
[2023-03-19 10:00] VITALS: BP 134/71; PULSE 77; RESP 17; O2SAT 98
== END 2023-03-19 10:18 | disposition home or self-care (01) ==
PROVIDERS: Emergency Provider Emergency Medicine
DX: T50.901A Poisoning by unspecified drugs, medicaments and biological substances, accidental (unintentional), initial encounter (principal); R40.4 Transient alteration of awareness; F19.90 Other psychoactive substance use, unspecified, uncomplicated; Y92.032 Bedroom in apartment as the place of occurrence of the external cause; F17.210 Nicotine dependence, cigarettes, uncomplicated
CPT/HCPCS: 70450; 99284

== ENCOUNTER 2023-10-09 01:33 | Emergency (ER) | payer SELFPAY ==
--- NOTE | 2023-10-09 | ECG_ITS ---
Test Reason : CP Blood Pressure : / mmHG Vent. Rate : 068 BPM Atrial Rate : 068 BPM P-R Int : 146 ms QRS Dur : 104 ms QT Int : 418 ms P-R-T Axes : 068 063 052 degrees QTc Int : 444 ms Normal sinus rhythm Increased R/S ratio in V1, consider early transition or posterior infarct Abnormal ECG When compared with ECG of 14-DEC-2020 01:50, No significant change was found Referred By: Generic ED Physician Electronically Signed By:LORNA BOURNE MD
[2023-10-09 01:43] VITALS: BP 102/56; BP 106/60; PULSE 70; PULSE 78; RESP 16; TEMP 36.9; O2SAT 100; O2SAT 98; BMI 24.4
[2023-10-09 02:04] LABS: MANUAL DIFF FLAG NO
[2023-10-09 02:06] LABS: Basophils Percent Auto 0.3 % (0-2); Eosinophils Absolute Auto 0.3 X10*3/uL (0.0-0.4); Eosinophils Percent Auto 2.3 % (0-4); Hemoglobin 12.4 g/dl (14.0-18.0); Imm Gran Abs Auto 0.04 X10*3/uL (0.00-0.03); Imm Gran Pct Auto 0.3 % (0.0-0.4); Lymphocytes Absolute Auto 2.9 X10*3/uL (1.2-4.9); Lymphocytes Percent Auto 23.1 % (20-40); Mean Corpuscular HGB Conc 35.4 g/dl (31.0-36.0); Mean Corpuscular Hemoglobin 31.8 pg (27.0-33.0); Mean Corpuscular Volume 89.7 fL (80.0-98.0); Mean Platelet Volume 8.4 fL (9.4-12.4); Monocytes Absolute Auto 0.7 X10*3/uL (0.1-1.2); Neutrophils Absolute Auto 8.4 x10*3/uL (2.0-8.3); Platelet Count 261 X10*3/uL (160-400); Red Cell Distribution Width 12.8 % (11.0-16.0); White Blood Count 12.4 X10*3/uL (4.8-10.8)
[2023-10-09 02:31] LABS: Alanine Aminotransferase 16 U/L (0-40); Albumin Level 3.5 g/dL (3.5-5.0); Alkaline Phosphatase 79 U/L (39-117); Anion Gap 12 (12-20); Aspartate Amino Transferase 18 U/L (5-37); Bilirubin Total 0.2 mg/dL (0.0-1.0); Blood Urea Nitrogen 14 mg/dL (9-16); Calcium 8.1 mg/dL (8.4-10.2); Carbon Dioxide 27 mmol/L (22-29); Chloride 107 mmol/L (96-108); Creatinine Clr Calc Pharmacy 126.7; Estimated Glomerular Filt Rate > 60; Glucose Random 118 mg/dL (60-115); Potassium 3.6 mmol/L (3.3-5.1); Sodium 142 mmol/L (135-145); Total Protein 5.7 g/dL (6.5-8.0); Troponin-I High Sensitivity < 2.7 ng/L (<3.5-35.0)
[2023-10-09 02:32] LABS: COVID-19 Test Negative (Negative); IDNOW Serial# 08D9AD1C; IDNOW Serial# 152EDE1D; IDNOW Serial# 9DB6401D; Influenza A Negative (Negative); Influenza B2 Negative (Negative); Strep A Nucleic Acid Positive (Negative)
--- NOTE | 2023-10-09 03:48 | ED.CHESTPAIN ---
HPI - Chest Pain General Chief Complaint: Chest Pain Stated Complaint: DIZZINESS Time Seen by Provider: 10/09/23 03:48 History of Present Illness ED Provider: Anushka LEAHY narrative: The patient is a 38-year-old male who is generally in good health who was not felt well for about 2 weeks. He has had a sore throat. He has also been feeling dizzy. He felt significantly worse tonight and came to the emergency room for evaluation. Related Data Previous Rx's ?Medication ?Instructions ?Recorded omeprazole 20 mg capsule,delayed 20 mg PO DAILY 30 days #30 caps 07/16/21 release sucralfate 100 mg/mL oral 10 ml PO BID #420 mL 07/16/21 suspension (Carafate) lidocaine HCl 2 % mucosal solution 15 ml mucous membrane Q3-4H PRN 11/10/21 (Lidocaine Viscous) pain 5 days #100 mL nystatin 100,000 unit/mL oral 1 ml PO QID 7 days #60 mL 11/10/21 suspension amoxicillin 500 mg capsule 500 mg PO TID 10 days #30 caps 10/09/23 ibuprofen 600 mg tablet 600 mg PO Q6H PRN pain #14 tabs 10/09/23 Allergies Allergy/AdvReac Type Severity Reaction Status Date / Time No Known Allergies Allergy Unknown Verified 10/09/23 01:44 Review of Systems Review of Systems: Yes all other systems are reviewed and are negative [facility] Past Medical History Medical History No known health problems Social History Social History Unable to assess alcohol history related to: Unable to respond Alcohol intake: current Alcohol intake frequency: a few times a week Alcohol type: beer Patient Tobacco Use Status: Current everyday Tobacco user Substance Use Type: Opiates Advance Directives: No Advance Directives Information Provided: No Physical Exam Vital Signs: Vital Signs: Last Vital Signs Temp 98.4 F 10/09/23 01:43 Pulse 70 10/09/23 01:43 Resp 16 10/09/23 01:43 BP 102/56 L 10/09/23 01:43 Pulse Ox 100 10/09/23 01:43 O2 Del Method Room Air 10/09/23 01:43 BMI result Body Mass Index 24.4 Const: Other: The patient is awake and alert. He looks tired. He has a slightly abnormal voice. He has exhibiting no shortness of breath. He is handling his secretions without difficulty. He does not appear obviously significantly ill. HEENT: Other: There is no trismus. The posterior pharynx is mildly erythematous. Airway is clear. Eyes: Other: Pupils are round equal, conjunctivae are clear Neck: Other: No stridor. Neck is supple. No significant adenopathy. Resp: Effort & Inspection: normal respiratory effort Auscultation: clear to auscultation bilaterally Cardio: Rate: regular rate Rhythm: regular rhythm Heart sounds: S1 normal heart sound present and S2 normal heart sound present GI: Other: Abdomen is soft and nontender Skin: Other: No rash, skin is dry and unremarkable Neuro: Other: The patient is awake and alert although he seems somewhat fatigued. He has a slightly hoarse voice. Cranial nerves are intact. He moves his extremities normally. He seems grossly neurologically intact with a nontoxic demeanor. Extrem: Other: No peripheral edema. Medical Decision Making Medical Decision Making [facility] Narrative: The patient is a generally healthy 38-year-old who presents with 2 weeks of a sore throat as well as a number of other symptoms including dizziness and some transient chest discomfort. He has an EKG that shows no acute ischemic changes or significant changes from previous EKGs. A rapid strep test was sent that was positive. His viral swab is negative for influenza and COVID. Other labs are unremarkable. A troponin has been sent but I do not have a high suspicion for an acute coronary syndrome in this patient. He will be treated for strep pharyngitis with amoxicillin. He does not have a PCP. He is encouraged to try to get a PCP. He should return if worse. Lab Data 10/09/23 01:52 10/09/23 01:52 Labs: Lab Results 10/09/23 Range/Units 01:52 WBC 12.4 H (4.8-10.8) X10*3/uL RBC 3.90 L (4.60-5.80) X10*6/uL Hgb 12.4 L (14.0-18.0) g/dl Hct 35.0 L (42.0-52.0) % MCV 89.7 (80.0-98.0) fL MCH 31.8 (27.0-33.0) pg MCHC 35.4 (31.0-36.0) g/dl RDW 12.8 (11.0-16.0) % Plt Count 261 (160-400) X10*3/uL MPV 8.4 L (9.4-12.4) fL Immature Gran % (Auto) 0.3 (0.0-0.4) % Neut % (Auto) 68.0 (45-73) % Lymph % (Auto) 23.1 (20-40) % Mathews % (Auto) 6.0 (2-11) % Eos % (Auto) 2.3 (0-4) % Baso % (Auto) 0.3 (0-2) % Lymph # (Auto) 2.9 (1.2-4.9) X10*3/uL Mathews # (Auto) 0.7 (0.1-1.2) X10*3/uL Eos # (Auto) 0.3 (0.0-0.4) X10*3/uL Baso # (Auto) 0.0 (0.0-0.2) X10*3/uL Abs Immat Gran (auto) 0.04 H (0.00-0.03) X10*3/uL Absolute Neuts (auto) 8.4 H (2.0-8.3) x10*3/uL Absolute Nucleated RBC 0.000 (0.0-0.012) X10*3/uL Nucleated RBC % (auto) 0.0 (0.0-0.2) /100WBC Sodium 142 (135-145) mmol/L Potassium 3.6 (3.3-5.1) mmol/L Chloride 107 (96-108) mmol/L Carbon Dioxide 27 (22-29) mmol/L Anion Gap 12 (12-20) BUN 14 (9-16) mg/dL Creatinine 0.85 (0.5-1.4) mg/dL Estim Creat Clear Calc 126.7 Estimated GFR > 60 Random Glucose 118 H (60-115) mg/dL Calcium 8.1 L D (8.4-10.2) mg/dL Total Bilirubin 0.2 (0.0-1.0) mg/dL AST 18 (5-37) U/L ALT 16 (0-40) U/L Alkaline Phosphatase 79 (39-117) U/L Troponin I High Sens < 2.7 (<3.5-35.0) ng/L Total Protein 5.7 L (6.5-8.0) g/dL Albumin 3.5 (3.5-5.0) g/dL COVID-19 ([facility]) Negative (Negative) COVID-19 Clin Com See Note Influenza Type A ([facility]) Negative (Negative) Influenza Type B ([facility]) Negative (Negative) Influenza A & B Note See Note S. pyogenes GrpA [facility] Positive A (Negative) Independent Interpretation I performed an independent interpretation of an: EKG Interpretation: EKG at 01:45 shows normal sinus rhythm at 68 beats per minute. No significant change from previous EKG. Discharge Plan Discharge Clinical Impression: Acute streptococcal pharyngitis Patient Disposition: Home, Self-Care Instructions: Strep Throat (ED) Additional Instructions: You have tested positive for strep throat today. Your other testing is reassuring. Please take the amoxicillin 3 times a day as prescribed. Please complete the whole 10 day course. I have also sent a prescription for ibuprofen to your pharmacy which you may use for discomfort. You may also take acetaminophen (Tylenol). Drink a lot of fluids. Please work on getting a regular primary care doctor also. If you are significantly worse return to the emergency department. Prescriptions: New amoxicillin 500 mg capsule 500 mg PO TID 10 Days Qty: 30 0RF ibuprofen 600 mg tablet 600 mg PO Q6H PRN (Reason: pain) Qty: 14 0RF No Action sucralfate [Carafate] 100 mg/mL suspension 10 ml PO BID Qty: 420 0RF omeprazole 20 mg capsule,delayed release(DR/EC) 20 mg PO DAILY 30 Days Qty: 30 0RF nystatin 100,000 unit/mL suspension 1 ml PO QID 7 Days Qty: 60 0RF Rx Instructions: swish and swallow lidocaine HCl [Lidocaine Viscous] 2 % solution 15 ml mucous membrane Q3-4H PRN (Reason: pain) 5 Days Qty: 100 0RF Rx Instructions: swish and spit. no more than 8 doses in 24 hours. Print Language: Kenyan
[2023-10-09] MEDS: Ketorolac Tromethamine 15 MG/ML VIAL IVPUSH (04:05)
[2023-10-09] MEDS: Amoxicillin 500 MG CAPSULE PO (04:05)
[2023-10-09 04:10] VITALS: BP 114/67; PULSE 70; RESP 19; TEMP 37.2; O2SAT 97
[2023-10-09 04:13] VITALS: BP 114/67; PULSE 70; RESP 19; TEMP 37.2; O2SAT 97
== END 2023-10-09 04:13 | disposition home or self-care (01) ==
PROVIDERS: Emergency Provider Emergency Medicine
DX: J02.0 Streptococcal pharyngitis (principal); R07.89 Other chest pain; R42 Dizziness and giddiness; F17.210 Nicotine dependence, cigarettes, uncomplicated; Z79.899 Other long term (current) drug therapy; Z11.52 Encounter for screening for COVID-19
CPT/HCPCS: 80053; 84484; 85025; 87502; 87635; 87651; 93005; 96374; 99284; 99285; J1885

== ENCOUNTER → 2023-10-09 01:45 | Outpatient (BNV) | payer SELFPAY | PROVIDERS: Emergency Provider Emergency Medicine; Visit Provider Internal Medicine Cardiovascular Disease | DX: R42 Dizziness and giddiness (principal) | CPT/HCPCS: 93010 ==

== ENCOUNTER 2023-10-16 14:12 | Emergency (ER) | payer SELFPAY ==
--- NOTE | 2023-10-16 14:25 | ED.GENADULT ---
HPI - General Adult General Chief complaint: Dental/Oral Stated complaint: Facial pain R side Time Seen by Provider: 10/16/23 14:26 Source: patient Mode of arrival: ambulatory Limitations: no limitations History of Present Illness ED Provider: Calli Banuelos APRN HPI narrative: 38yo male here with complaints of one week of right facial pain with clenching teeth or biting down. No diff breathing, diff swallowing, sore throat, dental pain, fevers, chills. Related Data Previous Rx's ?Medication ?Instructions ?Recorded omeprazole 20 mg capsule,delayed 20 mg PO DAILY 30 days #30 caps 07/16/21 release sucralfate 100 mg/mL oral 10 ml PO BID #420 mL 07/16/21 suspension (Carafate) lidocaine HCl 2 % mucosal solution 15 ml mucous membrane Q3-4H PRN 11/10/21 (Lidocaine Viscous) pain 5 days #100 mL nystatin 100,000 unit/mL oral 1 ml PO QID 7 days #60 mL 11/10/21 suspension amoxicillin 500 mg capsule 500 mg PO TID 10 days #30 caps 10/09/23 ibuprofen 600 mg tablet 600 mg PO Q6H PRN pain #14 tabs 10/09/23 Allergies Allergy/AdvReac Type Severity Reaction Status Date / Time No Known Allergies Allergy Unknown Verified 10/16/23 14:27 Review of Systems Review of Systems: Yes all other systems are reviewed and are negative Constitutional: Constitutional: Reports no additional constitutional complaints, Denies body ache(s), Denies chills, Denies fever(s), Denies headache(s) and Denies weakness Eyes: Eyes: Reports no additional eye complaints and Denies change in vision ENT: Reports system reviewed and no additional complaints, except as documented, Denies dizziness, Reports facial pain, Denies headache(s), Denies nasal congestion, Denies nasal discharge and Denies neck pain Cardiovascular: Cardiovascular: Reports no additional cardiovascular complaints, Denies chest pain, Denies leg edema and Denies dyspnea Respiratory: Respiratory: Reports no additional respiratory complaints, Denies cough and Denies dyspnea Gastrointestinal: Gastrointestinal: Reports no additional gastrointestinal complaints, Denies abdominal pain, Denies diarrhea, Denies nausea and Denies vomiting Genitourinary: Genitourinary: Denies urinary incontinence Musculoskeletal: Musculoskeletal: Reports no additional musculoskeletal complaints, Denies back pain, Denies arthralgias, Denies joint swelling, Denies neck pain, Denies numbness and Denies tingling Integumentary/Breasts: Skin/Breast: Reports system reviewed and no additional complaints, except as docu and Denies rash Neurologic: Reports system reviewed and no additional complaints, except as documented, Denies Abnormal speech present, Denies dizziness, Denies headache(s), Denies numbness, Denies tingling and Denies weakness PMF Past Medical History Attestation statement: The following information was validated with the patient. Source: old records reviewed and nursing notes reviewed Medical History No known health problems Social History Social History Unable to assess alcohol history related to: Unable to respond Alcohol intake: current Alcohol intake frequency: a few times a week Alcohol type: beer Patient Tobacco Use Status: Current everyday Tobacco user Substance Use Type: Marijuana Physical Exam ED Vital Signs: Vital Signs - 24 hr 10/16/23 14:26 Temperature 97 F Pulse Rate 61 Respiratory Rate 18 Blood Pressure 122/68 Pulse Oximetry 99 Oxygen Delivery Method Room Air BMI result Body Mass Index 27.5 Const General: cooperative, healthy appearing, comfortable and no acute distress Orientation/consciousness: patient oriented x3 Limitations: no limitations HENMT Head: Yes normal to inspection Ears: hearing grossly normal bilaterally General nose exam: Normal external nose present Face and sinus: Yes normal facial exam Mouth: Normal oral and palatal mucosa present and abnormal TMJ (Tenderness right side ) Throat: Yes posterior oropharynx normal, Yes tonsils normal and Yes uvula midline Eyes General: appearance normal, both eyes and all related structures Pupils: Equal, round and reactive pupils present Neck Neck: Yes normal visual inspection Chest Chest palpation & inspection: normal inspection of the chest Resp Effort & Inspection: normal respiratory effort Auscultation: clear to auscultation bilaterally Cardio Rate: regular rate Rhythm: regular rhythm Peripheral pulses: Peripheral pulses 2+ throughout GI Inspection: Yes normal to inspection Palpation (GI): Soft to palpation and nontender Auscultation: normal bowel sounds Back/Spine/Pelvis Thoracic/Lumbar Spine: thoracic and lumbar spine normal to inspection Skin General skin exam: no rashes or lesions noted Neuro General: patient oriented x3, no focal motor deficits and normal sensation to monofilament Cranial nerves: Yes Equal, round and reactive pupils present Cognition (Neuro): normal cognition Speech: No Abnormal speech present Gait exam (Neuro): Normal gait present Motor exam (neuro): 5/5 motor strength present throughout Extrem General: Yes normal to inspection Course Course Course Narrative: This is a rapid medical exam. Deferred additional HPI, ROS, PE to primary provider Medical Decision Making Medical Decision Making MDM Narrative: 38yo male here with complaints of one week of right facial pain with clenching teeth or biting down. No diff breathing, diff swallowing, sore throat, dental pain, fevers, chills. C/w with TMJ arthralgia Recommend supportive care, mouthguard, f.u outpatient Differential Diagnosis Differential Diagnoses: The differential diagnosis associated with the presentation includes TMJ arthralgia Admission/Observation Consideration of admission/observation: Escalation of care including admission/observation considered Tests considered The following testing was considered but not selected: no injury to suggest need for CT imaging Prescription Management I considered prescription management with: Pain Medication Discharge Plan Discharge Clinical Impression: TMJ arthralgia Patient Disposition: Home, Self-Care Instructions: Temporomandibular Disorder (ED) Additional Instructions: Consider buying a mouthguard for nighttime Soft foods Follow-up with dentist or PCP Motrin or tylenol for pain as needed Prescriptions: No Action sucralfate [Carafate] 100 mg/mL suspension 10 ml PO BID Qty: 420 0RF omeprazole 20 mg capsule,delayed release(DR/EC) 20 mg PO DAILY 30 Days Qty: 30 0RF nystatin 100,000 unit/mL suspension 1 ml PO QID 7 Days Qty: 60 0RF Rx Instructions: swish and swallow lidocaine HCl [Lidocaine Viscous] 2 % solution 15 ml mucous membrane Q3-4H PRN (Reason: pain) 5 Days Qty: 100 0RF Rx Instructions: swish and spit. no more than 8 doses in 24 hours. amoxicillin 500 mg capsule 500 mg PO TID 10 Days Qty: 30 0RF ibuprofen 600 mg tablet 600 mg PO Q6H PRN (Reason: pain) Qty: 14 0RF Referrals: Physician,Unknown J [Primary Care Provider] - 1 week Print Language: Filipino
[2023-10-16 14:26] VITALS: BP 122/68; PULSE 61; RESP 18; TEMP 36.1; O2SAT 99; BMI 27.5
== END 2023-10-16 14:32 | disposition home or self-care (01) ==
PROVIDERS: Emergency Provider Emergency Medicine
DX: M26.623 Arthralgia of bilateral temporomandibular joint (principal); R51.9 Headache, unspecified
CPT/HCPCS: 99281; 99282

== ENCOUNTER 2024-03-15 04:17 | Emergency (ER) | payer SELFPAY ==
[2024-03-15 04:21] VITALS: BP 118/72; PULSE 89; RESP 18; TEMP 36.9; O2SAT 97; BMI 21.8
--- NOTE | 2024-03-15 04:39 | ED.EAR ---
HPI - Ear Problem General Chief complaint: Ear Problems Stated complaint: bilateral ear pain Time Seen by Provider: 03/15/24 04:36 Source: patient Mode of arrival: ambulatory Limitations: no limitations History of Present Illness ED Provider: xena LEAHY Narrative: Patient complaining of bilateral earache for last 2 days no fever no sore throat no other symptoms Related Data Previous Rx's ?Medication ?Instructions ?Recorded omeprazole 20 mg capsule,delayed 20 mg PO DAILY 30 days #30 caps 07/16/21 release sucralfate 100 mg/mL oral 10 ml PO BID #420 mL 07/16/21 suspension (Carafate) lidocaine HCl 2 % mucosal solution 15 ml mucous membrane Q3-4H PRN 11/10/21 (Lidocaine Viscous) pain 5 days #100 mL nystatin 100,000 unit/mL oral 1 ml PO QID 7 days #60 mL 11/10/21 suspension amoxicillin 500 mg capsule 500 mg PO TID 10 days #30 caps 10/09/23 ibuprofen 600 mg tablet 600 mg PO Q6H PRN pain #14 tabs 10/09/23 amoxicillin 875 mg-potassium 1 tab PO BID #20 tabs 03/15/24 clavulanate 125 mg tablet ibuprofen 600 mg tablet 600 mg PO Q6H PRN fever or pain 03/15/24 #30 tabs Allergies Allergy/AdvReac Type Severity Reaction Status Date / Time No Known Allergies Allergy Unknown Verified 03/15/24 04:23 Review of Systems Review of Systems: Yes all other systems are reviewed and are negative PMFSH Past Medical History Medical History No known health problems Social History Social History Unable to assess alcohol history related to: Unable to respond Alcohol intake: current Alcohol intake frequency: a few times a week Alcohol type: beer Patient Tobacco Use Status: Current everyday Tobacco user Smoked in Last 30 Days: No Use of substances other than those prescribed or required for medical reasons: No Substance Use Type: Marijuana Advance Directives: No Advance Directives Information Provided: Yes Physical Exam Vital Signs: Vital Signs: Last Vital Signs Temp 98.5 F 03/15/24 04:21 Pulse 89 03/15/24 04:21 Resp 18 03/15/24 04:21 BP 118/72 03/15/24 04:21 Pulse Ox 97 03/15/24 04:21 O2 Del Method Room Air 03/15/24 04:21 BMI result Body Mass Index 21.8 Appearance: Alert. Oriented X3. No acute distress. ENT: Pharynx normal. Oral Mucosa moist bilateral tympanic membrane inflamed right more erythematous than the left Neck: Normal inspection. Neck supple. CVS: Normal heart rate and rhythm. Pulses normal. Respiratory: No respiratory distress. Equal air entry bilateral, no wheezing/rales/rhonchi Skin: Skin warm and dry. Normal skin color. Normal skin turgor. Extremities: No lower extremity edema. Neuro: Oriented X 3. Medical Decision Making Medical Decision Making MDM Narrative: Patient has bilateral otitis media will prescribe Augmentin Discharge Plan Discharge Clinical Impression: Otitis media Patient Disposition: Home, Self-Care Instructions: Ear Infection (ED) Additional Instructions: Take antibiotic as precaution Ibuprofen for pain Follow with PCP as needed Prescriptions: New amoxicillin-pot clavulanate 875-125 mg tablet 1 tab PO BID Qty: 20 0RF ibuprofen 600 mg tablet 600 mg PO Q6H PRN (Reason: fever or pain) Qty: 30 0RF No Action sucralfate [Carafate] 100 mg/mL suspension 10 ml PO BID Qty: 420 0RF omeprazole 20 mg capsule,delayed release(DR/EC) 20 mg PO DAILY 30 Days Qty: 30 0RF nystatin 100,000 unit/mL suspension 1 ml PO QID 7 Days Qty: 60 0RF Rx Instructions: swish and swallow lidocaine HCl [Lidocaine Viscous] 2 % solution 15 ml mucous membrane Q3-4H PRN (Reason: pain) 5 Days Qty: 100 0RF Rx Instructions: swish and spit. no more than 8 doses in 24 hours. amoxicillin 500 mg capsule 500 mg PO TID 10 Days Qty: 30 0RF ibuprofen 600 mg tablet 600 mg PO Q6H PRN (Reason: pain) Qty: 14 0RF Print Language: Hungarian
[2024-03-15] MEDS: Ibuprofen 600 MG TABLET PO (04:57)
[2024-03-15] MEDS: Amoxicillin/Potassium Clav 875 MG TABLET PO (04:57)
[2024-03-15 05:03] VITALS: BP 120/68; PULSE 78; RESP 18; TEMP 36.6; O2SAT 99
== END 2024-03-15 05:37 | disposition home or self-care (01) ==
PROVIDERS: Emergency Provider Internal Medicine
DX: H66.93 Otitis media, unspecified, bilateral (principal); H92.03 Otalgia, bilateral
CPT/HCPCS: 99283; 99284